=== PATIENT | male | born 1965 | race Caucasian/White ===

== ENCOUNTER 2017-01-16 09:00 | Inpatient (IN) | payer OTHER ==
[~2017-01-16] VITALS: Ht 185.4 cm; Wt 153.7 kg
--- NOTE | ~2017-01-16 | OR ---
PATIENT'S NAME: ELI [facility] AGE: 51 Y [address] ROOM: [place] [address] LOCATION: [facility] ADMIT DATE: 01/30/2017 OR/Procedure Report DISCHARGE DATE: FAMILY PHYSICIAN: CLOTON GASTON MD ATTENDING PHYSICIAN: HEATHER POLANCO SURGEON: Heather Polanco MD HRIS ADMINISTRATOR: 1. REGAN Salazar. 2. Neal Webb CST/HEIDY. 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 OPERATION: Left total hip arthroplasty. ANESTHESIA: Spinal anesthesia plus general endotracheal anesthesia. ESTIMATED BLOOD LOSS: Approximately 300 mL. DRAIN: None. SPECIMEN: None. COMPLICATIONS: None. IMPLANTS: 1. Dover Trident Tritanium size 60 mm hemispherical uncemented acetabular shell with one dome hole cover and no screws. 2. Dover X3 neutral acetabular polyethylene liner with 36 mm inner diameter. 3. DePuy [place] size 7, high-offset uncemented femoral component. 4. 36 mm diameter Biolox femoral head with +1.5 mm neck length. INDICATION FOR SURGERY: The patient is a 51-year-old male, who presents with advanced left hip femoral acetabular impingement syndrome with secondary degenerative joint disease and associated severely compromised activities of daily living. The patient has decided to proceed with hip replacement after having been thoroughly counseled regarding the associated risks, benefits, and limitations. We have specifically reviewed the risks and implications of infection, deep venous thrombosis, pulmonary embolism, mortality, neurovascular complications, blood transfusion (and associated potential for disease transmission or transfusion reaction), stiffness, instability, leg PATIENT'S NAME: ELI, [facility] AGE: 51 Y [address] ROOM: [place] [address] LOCATION: [facility] ADMIT DATE: 01/30/2017 OR/Procedure Report DISCHARGE DATE: FAMILY PHYSICIAN: COLTON GASTON MD ATTENDING PHYSICIAN: HEATHER POLANCO length discrepancy, mechanical deterioration of the components (due to wear and to loosening), and the potential need for revision. DESCRIPTION OF PROCEDURE: The patient was positioned in a lateral decubitus position with the left side up after administration of anesthesia and prophylactic antibiotics. An axillary roll was placed and the non-operative leg was well padded. The pelvis was locked perpendicularly to the floor on a pegboard. The left hip and entire operative extremity were prepped and draped with vigilant sterile technique. The patient's name as well as the intended operative side and procedure were confirmed with a verbal time-out involving myself, the circulating nurse, the scrub nurse, and the anesthesiologist. The left hip was approached through a standard posterolateral incision. The fascia alejo and the gluteus ganesh fascia were sharply divided in line with the overlying skin incision. The sciatic nerve was identified and was vigilantly protected throughout the entire case. The short external rotators and posterior capsule were divided from their respective femoral insertions and tagged with four #1 Ethibond sutures for later repair. The hip was posteriorly dislocated with combined flexion, adduction, and internal rotation. The femoral neck osteotomy was performed with an oscillating saw. Inspection of the femoral head demonstrated CAM impingement morphology with full-thickness loss of articular cartilage involving approximately 50% of the weightbearing surface of the femoral head. There was a large osteophyte at the periphery of the femoral head. There was no femoral head collapse. Circumferential acetabular exposure was obtained. Examination of the acetabulum demonstrated a moderate sized medial acetabular osteophyte. There was full-thickness loss of articular cartilage involving a 2 x 3 cm diameter region of the superior acetabulum. There was no dysplasia. There were no loose bodies. There was a moderate effusion consisting of benign- appearing translucent synovial fluid. Remnants of the acetabular labrum were sharply thoroughly excised. The acetabulum was sequentially progressively reamed up to 59 mm with hemispherical power reamers. The final acetabular shell was impacted into position in 20 degrees of anteversion and 45 degrees of inclination. An excellent press-fit was obtained. No supplemental dome screw fixation was necessary. A neutral trial liner was inserted. Attention was next focused upon femoral preparation. The femoral canal initiator was utilized. The femoral canal was reamed by hand to a size 5 and subsequently on power to a size 7 with tapered conical reamers. The size 6 and size 7 reamers tightly engaged the endosteal cortex of the proximal femur. PATIENT'S NAME: SULEMA BENITEZ [facility] AGE: 51 Y [address] ROOM: [id number] [place], [place] [id number] LOCATION: [facility] ADMIT DATE: 01/30/2017 OR/Procedure Report DISCHARGE DATE: FAMILY PHYSICIAN: COLTON GASTON MD ATTENDING PHYSICIAN: HEATHER POLANCO The femoral canal was subsequently sequentially progressively broached up to a size 7. The size 7 broach obtained excellent axial and rotational stability. Trial reductions with the above specified construct yielded acceptable stability and acceptable reproduction of leg length and offset. All trial components were removed. The final acetabular liner was inserted with excellent circumferential visualization of its locking mechanism to assure adequate deployment. The final femoral component was impacted into position. The femoral component achieved excellent axial and rotational stability. The trunnion of the femoral component was vigilantly protected prior to placement of the femoral head. The trunnion of the femoral component was thoroughly cleaned and dried prior to placement of the femoral head. The incision was thoroughly irrigated with bacteriostatic pulsatile saline lavage multiple times throughout the case. The entire joint space was thoroughly inspected and thoroughly irrigated to assure that there was no residual debris of any sort. A final reduction was then performed. After final reduction, the hip could be firmly externally rotated in full extension and zero degrees of abduction without anterior subluxation. In neutral rotation and zero degrees of abduction, the hip could be firmly flexed to 120 degrees without instability. At 90 degrees of flexion and zero degrees abduction, the hip could be internally rotated to 70 degrees before there was any hint of posterior subluxation. The posterior capsule and short external rotators were repaired through two drill holes in the posterior aspect of the greater trochanter. The fascia alejo and gluteus ganesh fascia were closed with multiple simple and [id number] interrupted # 1 Ethibond and #1 Vicryl sutures. Subcutaneous tissues were thoroughly re-irrigated with bacteriostatic pulsatile saline lavage. Subcutaneous tissues were re-approximated with simple buried interrupted #0 Vicryl sutures. The skin was closed with superficial buried interrupted 2-0 Vicryl sutures followed by a running subcuticular 3-0 Monocryl suture, followed by Octylseal, followed by Steri- Strips with benzoin, followed by an occlusive Mepilex dressing. There were no intra-operative complications. It should be noted that the physician's information services assistant played an active, integral role throughout this entire operation. By providing expert retraction, they greatly facilitated and expedited safe and effective exposure of the proximal femur and acetabulum for preparation and implantation of the components. They were also actively involved in the patient's positioning, prepping and PATIENT'S NAME: SULEMA BENITEZ [facility] AGE: 51 Y [address] ROOM: [place] [address] LOCATION: [facility] ADMIT DATE: 01/30/2017 OR/Procedure Report DISCHARGE DATE: FAMILY PHYSICIAN: COLTON GASTON MD ATTENDING PHYSICIAN: HEATHER POLANCO, as well as wound closure. HEATHER POLANCO MD JMW/modl /[id number] d: 01/30/172327 t: 02/09/172034, OPERATIVE SUMMARY
--- NOTE | ~2017-01-16 | DS ---
PATIENT'S NAME: SULEMA BENITEZ [facility] AGE: 51 Y [address] ROOM: [place] [address] LOCATION: [facility] ADMIT DATE: 01/30/2017 Discharge Summary DISCHARGE DATE: 02/01/2017 FAMILY PHYSICIAN: Cezar Dorman MD ATTENDING PHYSICIAN: Asad Vogel PRIMARY DIAGNOSIS: Osteoarthritis, left hip. SECONDARY DIAGNOSES: 1. Obstructive sleep apnea on CPAP machine. 2. Hypertension. 3. Obesity. PROCEDURE PERFORMED: Left total hip arthroplasty. HISTORY: The patient is a 51-year-old who presents with advanced left hip degenerative joint disease and associated severely compromised activities of daily living. The patient has decided to proceed with total left hip arthroplasty after having been thoroughly counseled regarding the risks, benefits, limitations and alternatives. Please refer to the outpatient clinic notes and admission history and physical for this patient. HOSPITAL COURSE: The patient underwent a total left hip arthroplasty on 01/30/2017 without complications. Spinal anesthesia plus general and endotracheal anesthesia was utilized. The patient received 24 hours of perioperative prophylactic antibiotics and remained hemodynamically stable, neurovascularly intact throughout the entire hospital course. The postoperative prophylactic deep venous thrombosis prophylaxis consisted of Xarelto, early mobilization and pneumatic compression devices. Daily physical therapy for gait training, transfer training, and reinforcement of hip dislocation precautions were received. The patient progressed well in physical therapy. On the date of discharge, 02/01/2017, the incision at the hip was healing well and showed no signs of infection. DISPOSITION: Home. DISCHARGE ACTIVITY: The patient is to bear weight as tolerated with strict hip dislocation precautions as instructed. There are to be no dressing changes. Dr. Vogel is to be notified immediately if there is any increased pain, fevers, chills, erythema, or drainage. DISCHARGE MEDICATIONS: 1. Xarelto 10 mg one tab p.o. daily for 12 days for postoperative DVT prophylaxis. 2. Aspirin 81 mg one tab p.o. daily. PATIENT'S NAME: SULEMA BENITEZ [facility] AGE: 51 Y [address] ROOM: [place] [address] LOCATION: [facility] ADMIT DATE: 01/30/2017 Discharge Summary DISCHARGE DATE: 02/01/2017 FAMILY PHYSICIAN: Cezar Dorman MD ATTENDING PHYSICIAN: Asad Vogel 3. Hydromorphone 2 mg 1-2 tabs p.o. every 4 hours p.r.n. for pain. 4. Diazepam 5 mg 1/2 to 1 tab p.o. every 6 hours p.r.n. for muscle spasms. He was then intructed to continue all his other preadmission medications as instructed by his internal medicine doctor. FOLLOWUP: Followup appointment is to be with Dr. Vogel's office on 02/07/2017 for his initial postoperative evaluation. ALEXANDER CALDERON PA-C FOR MD GENEVIEVE BARRW/roxannel /[id number] d: 02/08/17 0411 t: 02/13/17 0912, DISCHARGE SUMMARY
[2017-01-16] MEDS ORDERED: HYDROCHLOROTH12.5 MG PO (16:25)
[2017-01-16] MEDS ORDERED: MOBIC15 MG PO (16:25)
[2017-01-16] MEDS ORDERED: ZESTRIL30 MG PO (16:25)
[2017-01-16] MEDS ORDERED: ASPIRIN325 MG PO (16:26)
[2017-01-16] MEDS ORDERED: MULTI VITAMIN1 EACH PO (16:26)
[2017-01-16] MEDS ORDERED: JUICE PLUS PO (16:27)
[2017-01-16] MEDS ORDERED: CPAP INH (16:28)
[2017-01-16] MEDS ORDERED: TYLENOL EXTRA500 MG PO (16:29)
--- NOTE | 2017-01-30 21:22 | NUR ---
Significant Event: Received from pacu @ 1630. Will have 3rd hourly vs due @ 0162. Had spinal and general. Mepilex dressing c/d/i to L) hip. Ice bag to L) hip. CSM WNL. Dilaudid 2 mg @ 1915. Pillows between knees. Estevan hose removed. Foot pumps on. O2 weaned off. Had large incont in pacu. SL L) upper arm, power glide. Uses CPAP. Follow up:
--- NOTE | 2017-01-31 07:28 | NUR ---
Significant Event: Assumed cares at 2230. Vital signs stable. Wears CPAP at HS. Dressing to L) hip is CDI. Complaints of tightness to L) thigh. Ice placed to thigh also. Dilaudid given last at 0507 and valium at 0513. Up to bathroom X1 this shift with 1 assist, gait belt and walker. Pt has had 1 large void (+1 large incontinence reported by ROBYN Hendricks). CSM WNL. Powerglide IV to L upper arm. Saline lock to R) hand. Follow up:
--- NOTE | 2017-01-31 10:21 | NUR ---
Introduced self/role to patient. Not but has the support of his sister Abi. He lives in [place]. Denied any discharge barriers or needs. Has DME already at home, if he needs additional DME he knows were to pick it up at. Added my name to his marker board, will continue to follow. Planning for home tomorrow.
--- NOTE | 2017-01-31 16:32 | NUR ---
I am preceptor for new orientee Addi Vázquez RN and I agree with his charting for this shift.
--- NOTE | 2017-01-31 18:56 | NUR ---
Pt up w/ 1 assist in witt x 2. CSMs intact. Pain 3-12/19, pt describes it as a tight ache. 2 mg po Dilaudid at 1715. Pt voiding w/o difficulty. Pt afebrile on Room air. Dressing C/D/I.
--- NOTE | 2017-02-01 04:55 | NUR ---
Significant Event: Alert/oriented x3. Possible DC home today. VSS, CSM WNL. 1 assist ambulation. 1 large void. IV SL. Pain controlled effectively with Dilaudid 2 mg at 2200, Valium 2248, scheduled Tylenol. CPAP at night. Dressing C/D/I, ice applied to the side of hip and top of thigh. Follow up:
[2017-02-01] MEDS ORDERED: ASPIRIN (CHILDR81 MG PO (11:43)
[2017-02-01] MEDS ORDERED: COLACE100 MG PO (11:44)
[2017-02-01] MEDS ORDERED: MIRALAX17 GM PO (11:45)
[2017-02-01] MEDS ORDERED: XARELTO10 MG PO (11:46)
[2017-02-01] MEDS ORDERED: DILAUDID 2MG(HYD2 MG PO (11:47)
[2017-02-01] MEDS ORDERED: VALIUM2 MG PO (11:47)
--- NOTE | 2017-02-01 15:20 | NUR ---
D: PATIENT ALERT AND ORIENTED X3. CSM ASSESSMENTS TO L) LOWER LEG WNL. MEPILEX DRESSING TO L) HIP C/D/I. AMBULATES TO BATHROOM, UP TO CHAIR AND AMBULATED IN [facility] WITH SBA, USE OF WALKER/GAIT BELT TOLERATED WELL. PAIN WELL CONTROLLED WITH ROUTINE TYLENOL EXTRA STRENGTH GIVEN AT 1128 AND DILAUDID 1 TAB GIVEN AT 1004. ICE BAG TO L) HIP AND THIGH, BILATERAL MARSHALL HOSE ON. DISCHARGE INSTRUCTIONS REVIEWED WITH PATIENT, VERBALIZES UNDERSTANDING. PATIENT ASSISTED TO VEHICLE VIA W/C AND TRANSPORT ASSISTANCE. PATIENT ACCOMPANIED BY SON AND FAMILY MEMBER.
== END 2017-02-01 15:35 | disposition disaster alternative care site (69) | DRG 470 ==
LOC: G3N 01-30 08:20
PROVIDERS: ADMIT Orthopaedic Surgery
PROC: 0SRB02A Replacement of Left Hip Joint with Metal on Polyethylene Synthetic Substitute, Uncemented, Open Approach (ICD-10-PCS; principal; 2017-01-30)
DX: M25.852 Other specified joint disorders, left hip (principal); Z68.42 Body mass index [BMI] 45.0-49.9, adult; I10 Essential (primary) hypertension; M16.6 Other bilateral secondary osteoarthritis of hip; E66.01 Morbid (severe) obesity due to excess calories; G47.33 Obstructive sleep apnea (adult) (pediatric); Z88.0 Allergy status to penicillin; Z79.82 Long term (current) use of aspirin
CPT/HCPCS: C1751; C1776; J1885; J2001; J2250; J2795; J3010; J7030

== ENCOUNTER → 2017-01-19 | Outpatient (CLI) | payer OTHER ==
[~2017-01-19] MED LIST: ASPIRIN (CHILDR81 MG PO; ASPIRIN325 MG PO; COLACE100 MG PO; CPAP INH; DILAUDID 2MG(HYD2 MG PO; HYDROCHLOROTH12.5 MG PO; JUICE PLUS PO; MIRALAX17 GM PO; MOBIC15 MG PO; MULTI VITAMIN1 EACH PO; TYLENOL EXTRA500 MG PO; VALIUM2 MG PO; XARELTO10 MG PO; ZESTRIL30 MG PO
== END | disposition disaster alternative care site (69) ==
LOC: GNJRC 10:08
DX: Z01.812 Encounter for preprocedural laboratory examination (principal); M16.12 Unilateral primary osteoarthritis, left hip